=== PATIENT | male | born 1970 | race Caucasian/White ===

== ENCOUNTER 2017-10-06 18:21 | Emergency (ER) | payer MEDICARE, MEDICAID ==
[~2017-10-06] VITALS: Ht 134.6 cm; Wt 81.6 kg
[~2017-10-06 18:21] MED LIST: ALLP100T PO; AMIT25TA9 PO; CARI350T27 PO; CLIN-62 PO; DICY10CA12 PO; ESCT10T PO; ESOM10SU PO; GUAI-583 PO; HYDR1CAP2 PO; LEFL10TA PO; LEVO125T6 PO; LORA10TA7 PO; QTP100T PO; REMICADE; SILO8CAP PO; [UNRECOGNIZED DRUG - CODE] PO
--- OUTSIDE RECORDS SUMMARY | 2017-10-06 18:29 | XMS REPORT | Referral Summary ---
Author Author [facility] Organization [facility] Address Unknown Phone Unavailable Care Team Providers Care Drill Bit Sharpener Name Role Phone Tyrese Ramirez PCP Encounter VC Date(s): 08/09/15 - 08/10/15 [facility] [address] [place] [address]- Discharge Diagnosis: Contact dermatitis Discharge Disposition: 01-Home or Self Care Attending Physician: Chad Clay MD Admitting Physician: Chad Clay MD Vital Signs Most recent to 1 oldest [Reference Range]: Temperature Oral 36.9 degC [35.8-37.3 degC] (08/10/15 12:09 AM) Peripheral Pulse 81 bpm Rate [60-100 bpm] (08/10/15 12:09 AM) Respiratory Rate 18 br/min [14-20 br/min] (08/10/15 12:09 AM) Blood Pressure 122/76 mmHg [90-140/60-90 mmHg] (08/10/15 12:09 AM) SpO2 98 % (08/10/15 12:09 AM) Problem List Condition Effective Dates Status Health Status Informant Acute URI(Confirmed) Active Allergic Active rhinitis(Confirmed) Broken Active patient neck(Confirmed) Dementia(Confirmed) Active patient Esophageal Active patient dysmotility disease(Confirmed) GERD(Confirmed) Active patient Gout(Confirmed) Active patient Hyperlipemia(Confirm Active patient ed) Mental Active patient retardation(Confirme d) Neuropathy (nerve Active patient damage)(Confirmed) Psoriases(Confirmed) Active patient Psoriatic Active patient arthritis(Confirmed) Allergies, Adverse Reactions, Alerts Substance Reaction Severity Status celecoxib ITCHING Active methotrexate Pruritus Active morphine Adverse Reaction Active sulfamethoxazole Adverse Reaction Active Tape Eczema (rash) Active Medications albuterol CFC free 90 mcg/inh inhalation aerosol 1 puffs, Inhalation, q4hr, as needed for wheezing, # 18 g, 0 Refill(s) Start Date: 07/07/14 Status: Ordered clindamycin 150 mg oral capsule 450 mg 3 caps, Oral, q8hr, X 10 days, # 90 caps, 0 Refill(s) Start Date: 08/10/15 Stop Date: 08/20/15 Status: Ordered HYDROcodone Oral, q12hr, 0 Refill(s) Start Date: 07/07/14 Status: Ordered Results No data available for this section Immunizations No data available for this section Procedures Procedure Date Related Diagnosis Body Site Bilateral inguinal hernia repair Cholecystectomy Corneal transplant Neck repair Social History Social History Type Response Smoking Status Never smoker Assessment and Plan No data available for this section
--- OUTSIDE RECORDS SUMMARY | 2017-10-06 18:30 | XMS REPORT | Referral Summary ---
Author Author [facility] Organization [facility] Address Unknown Phone Unavailable Care Team Providers Care Jumpbasting Lining Baster Name Role Phone Tyrese Ramirez PCP Encounter VC Date(s): 10/25/15 - 10/25/15 [facility] [address] [place] [address] Discharge Diagnosis: Rectal bleeding Discharge Disposition: 01-Home or Self Care Attending Physician: Lakeisha Lamb MD Admitting Physician: Lakeisha Lamb MD Vital Signs Most recent to 1 oldest [Reference Range]: Temperature Oral 36.6 degC [35.8-37.3 degC] (10/25/15 12:13 AM) Peripheral Pulse 70 bpm Rate [60-100 bpm] (10/25/15 2:32 AM) Heart Rate Monitored 77 bpm [60-100 bpm] (10/25/15 2:30 AM) Respiratory Rate 18 br/min [14-20 br/min] (10/25/15 2:32 AM) Blood Pressure 103/87 mmHg [90-140/60-90 mmHg] (10/25/15 2:32 AM) Mean Arterial 91 mmHg Pressure, Cuff (10/25/15 2:30 AM) SpO2 97 % (10/25/15 2:32 AM) Problem List Condition Effective Dates Status [...] oral capsule 450 mg 3 caps, Oral, TID, X 10 days, # 90 caps, 0 Refill(s) Start Date: 10/17/15 Stop Date: 10/27/15 Status: Ordered HYDROcodone Oral, q12hr, 0 Refill(s) Start Date: 07/07/14 Status: Ordered Results Hematology Most recent to 1 oldest [Reference Range]: WBC [4.8-10.8 13.1 10*3/uL 10*3/uL] *HI* (10/25/15 12:58 AM) RBC [4.60-6.20] 4.86 (10/25/15 12:58 AM) Hgb [14.0-18.0 15.3 gm/dL gm/dL] (10/25/15 12:58 AM) Hct [42.0-52.0 %] 44.7 % (10/25/15 12:58 AM) MCV [82.0-99.0 fL] 92.0 fL (10/25/15 12:58 AM) MCH [27.0-32.0 pg] 31.5 pg (10/25/15 12:58 AM) MCHC [32.0-36.0 34.2 gm/dL gm/dL] (10/25/15 12:58 AM) RDW [11.5-14.5 %] 15.4 % *HI* (10/25/15 12:58 AM) Platelet [150-400 258 10*3/uL 10*3/uL] (10/25/15 12:58 AM) MPV [9.4-12.3 fL] 10.1 fL (10/25/15 12:58 AM) Neutrophils [51-75 72 % %] (10/25/15 12:58 AM) Band Man [0-8 %] 1 % (10/25/15 12:58 AM) [place] Man [0-1 %] 1 % (10/25/15 12:58 AM) Lymphocytes [20-46 17 % %] *LOW* (10/25/15 12:58 AM) Abn Lymph Man 2 % (10/25/15 12:58 AM) Monocytes [4-11 %] 3 % *LOW* (10/25/15 12:58 AM) Eosinophils [0-4 %] 2 % (10/25/15 12:58 AM) Basophils [0-2 %] 2 % (10/25/15 12:58 AM) Neutro Absolute 9.56 10*3 [1.90-7.00 10*3] *HI* (10/25/15 12:58 AM) Lymph Absolute 2.49 10*3 [0.80-3.30 10*3] (10/25/15 12:58 AM) [place] Absolute 0.39 10*3 [0.30-1.00 10*3] (10/25/15 12:58 AM) Eos Absolute 0.26 10*3 [0.00-0.50 10*3] (10/25/15 12:58 AM) Baso Absolute 0.26 10*3 [0.00-0.20 10*3] *HI* (10/25/15 12:58 AM) Nucleated RBC 0.0 /100 WBC Automated [0 /100 (10/25/15 12:58 AM) WBC] Differential Reviewed (10/25/15 12:58 AM) Chemistry Most recent to 1 oldest [Reference Range]: Sodium Lvl [136-144 140 mEq/L mEq/L] (10/25/15 12:58 AM) Potassium Lvl 3.7 mEq/L [3.6-5.1 mEq/L] (10/25/15 12:58 AM) Chloride [99-109 100 mEq/L mEq/L] (10/25/15 12:58 AM) CO2 [22-32 mEq/L] 33 mEq/L *HI* (10/25/15 12:58 AM) AGAP [3-20] 7 (10/25/15 12:58 AM) BUN [4-20 mg/dL] 9 mg/dL (10/25/15 12:58 AM) Glucose Lvl [70-100 97 mg/dL mg/dL] (10/25/15 12:58 AM) Creatinine Lvl 0.92 mg/dL [0.64-1.27 mg/dL] (10/25/15 12:58 AM) eGFR [>60] >60 1 (10/25/15 12:58 AM) Calcium Lvl 8.9 mg/dL [8.6-10.0 mg/dL] (10/25/15 12:58 AM) Albumin Lvl [3.5-4.8 3.3 gm/dL gm/dL] *LOW* (10/25/15 12:58 AM) Total Protein 6.9 gm/dL [6.1-7.9 gm/dL] (10/25/15 12:58 AM) Globulin [1.9-4.3 3.6 gm/dL gm/dL] (10/25/15 12:58 AM) ALT [17-63 U/L] 37 U/L (10/25/15 12:58 AM) AST [15-41 U/L] 31 U/L (10/25/15 12:58 AM) Alk Phos [26-104 105 U/L U/L] *HI* (10/25/15 12:58 AM) Bili Total [0.2-1.2 0.4 mg/dL 2 mg/dL] (10/25/15 12:58 AM) 1Result Comment: Multiply eGFR results by 1.21 for race. 2Result Comment: Naproxen, specifically the metabolite O-desmethylnaproxen, may cause spurious elevation in Total Bilirubin levels. Immunizations No data available for this section Procedures Procedure Date Related Diagnosis Body Site Bilateral inguinal hernia repair Cholecystectomy Corneal transplant Neck repair Social History Social History Type Response Smoking Status Never smoker Assessment and Plan No data available for this section
--- OUTSIDE RECORDS SUMMARY | 2017-10-06 18:30 | XMS REPORT | Referral Summary ---
Author Author Via [facility] Organization [facility] Address Unknown Phone Unavailable Care Team Providers Care Hatchery Man Name Role Phone Tyrese Ramirez PCP Encounter VC Date(s): 08/13/16 - 08/13/[address] [facility] [address], [place] [address] Discharge Diagnosis: Altered mental status, unspecified Discharge Diagnosis: Altered mental status, unspecified Discharge Disposition: 01-Home or Self Care Attending Physician: Bruno Da Silva MD Admitting Physician: Kenneth Aguilar MD Vital Signs Most recent to 1 oldest [Reference Range]: Temperature Oral 36.6 degC [35.8-37.3 degC] (08/13/16 6:18 PM) Peripheral Pulse 54 bpm Rate [60-100 bpm] *LOW* (08/13/16 9:26 PM) Heart Rate Monitored 45 bpm [60-100 bpm] *LOW* (08/13/16 9:00 PM) Respiratory Rate 16 br/min [14-20 br/min] (08/13/16 9:26 PM) Blood Pressure 105/71 mmHg [90-140/60-90 mmHg] (08/13/16 9:26 PM) Mean Arterial 97 mmHg Pressure, Cuff (08/13/16 9:00 PM) SpO2 95 % (08/13/16 9:26 PM) Problem List Condition Effective Dates Status Health Status Informant Acute URI(Confirmed) Active Allergies(Confirmed) Active Allergic Active rhinitis(Confirmed) Anemia(Confirmed) Active Arthritis(Confirmed) Active Broken Active patient neck(Confirmed) Cortical, lamellar, Active or zonular cataract(Confirmed) Cerebrovascular Active accident(Confirmed) Dementia(Confirmed) Active patient Depression(Confirmed Active ) Thyroid Active disease(Confirmed) Esophageal Active patient dysmotility disease(Confirmed) Fibromyalgia(Confirm Active ed) Fracture of Active ankle(Confirmed) GERD(Confirmed) Active patient Gout(Confirmed) Active patient Hyperlipemia(Confirm Active patient ed) Irritable bowel Active disease(Confirmed) [place], stable Active condition(Confirmed) Mental Active patient retardation(Confirme d) Neuropathy (nerve Active patient damage)(Confirmed) Osteoporosis(Confirm Active ed) Peptic ulcer Active disease(Confirmed) Psoriases(Confirmed) Active patient Psoriatic Active patient arthritis(Confirmed) Allergies, Adverse Reactions, Alerts Substance Reaction Severity Status celecoxib ITCHING Active methotrexate Pruritus Active Methotrexate Sodium Active morphine Adverse Reaction Active Morphine Sulfate Active sulfamethoxazole Adverse Reaction Active sulfonamides Active Tape Eczema (rash) Active Medications albuterol CFC free 90 mcg/inh inhalation aerosol 1 puffs, Inhalation, q4hr, as needed for wheezing, # 18 g, 0 Refill(s) Start Date: 07/07/14 Status: Ordered allopurinol 300 mg oral tablet 300 mg 1 tabs, Oral, Daily Start Date: 11/06/15 Status: Ordered clotrimazole-betamethasone 1%-0.05% topical cream Topical, BID, Apply by topical route Start Date: 11/06/15 Status: Ordered cyclobenzaprine 10 mg oral tablet 10 mg 1 tabs, Oral, TID Start Date: 11/06/15 Status: Ordered diclofenac sodium 75 mg oral delayed release tablet 75 mg 1 tabs, Oral, Daily Start Date: 11/06/15 Status: Ordered dicyclomine 10 mg oral capsule 10 mg 1 caps, Oral, BID Start Date: 11/06/15 Status: Ordered escitalopram 20 mg oral tablet 20 mg 1 tabs, Oral, Daily Start Date: 11/06/15 Status: Ordered HYDROcodone Oral, q12hr, 0 Refill(s) Start Date: 07/07/14 Status: Ordered hyoscyamine 0.125 mg sublingual tablet 0.125 mg 1 tabs, SubLingual, TID, during a meal Start Date: 11/06/15 Status: Ordered levothyroxine 150 mcg (0.15 mg) oral tablet 150 mcg 1 tabs, Oral, Daily Start Date: 11/06/15 Status: Ordered loratadine 10 mg oral tablet 10 mg 1 tabs, Oral, Daily Start Date: 11/06/15 Status: Ordered Lortab 1 tabs, Oral, q6hr, as needed for pain, Lortab 7.5 mg-500 mg, 0 Refill(s) Start Date: 11/06/15 Status: Ordered mupirocin 2% topical ointment Topical, BID, Apply a small amount to the affected area Start Date: 11/06/15 Status: Ordered prednisoLONE acetate mg, Oral, Daily, 0 Refill(s) Start Date: 11/06/15 Status: Ordered prednisoLONE acetate 1% ophthalmic suspension 1 drops, Eye-Left, QID Start Date: 11/06/15 Status: Ordered QUEtiapine 100 mg oral tablet 100 mg 1 tabs, Oral, BID Start Date: 11/06/15 Status: Ordered Remicade 100 mg intravenous injection 5 mg/kg, IV, 0, 2 then every 4 weeks, SoluMedron 125 mg IV prior to Remicade Start Date: 11/06/15 Status: Ordered Remicade 100 mg intravenous injection 5 mg/kg, IV, 0.2 then every 4 weeks Start Date: 11/06/15 Status: Ordered silodosin 8 mg oral capsule 8 mg 1 caps, Oral, Bedtime (once a day) Start Date: 11/06/15 Status: Ordered simvastatin 10 mg oral tablet 10 mg 1 tabs, Oral, take in the evening Start Date: 11/06/15 Status: Ordered triamcinolone 0.1% topical cream imelda, Topical, TID, 0 Refill(s) Start Date: 11/06/15 Status: Ordered Vitamin D3 1000 intl units oral tablet 3, Daily Start Date: 11/06/15 Status: Ordered Results Hematology Most recent to 1 oldest [Reference Range]: WBC [4.8-10.8 10.0 10*3/uL 10*3/uL] (08/13/16 6:47 PM) RBC [4.60-6.20] 4.75 (08/13/16 6:47 PM) Hgb [14.0-18.0 15.1 gm/dL gm/dL] (08/13/16 6:47 PM) Hct [42.0-52.0 %] 44.0 % (08/13/16 6:47 PM) MCV [82.0-99.0 fL] 92.6 fL (08/13/16 6:47 PM) MCH [27.0-32.0 pg] 31.8 pg (08/13/16 6:47 PM) MCHC [32.0-36.0 34.3 gm/dL gm/dL] (08/13/16 6:47 PM) RDW [11.5-14.5 %] 15.6 % *HI* (08/13/16 6:47 PM) Platelet [150-400 215 10*3/uL 10*3/uL] (08/13/16 6:47 PM) MPV [9.4-12.3 fL] 10.1 fL (08/13/16 6:47 PM) Immature 0.6 % Granulocytes (08/13/16 6:47 PM) [0.0-1.0 %] Neutrophils [51-75 63 % %] (08/13/16 6:47 PM) Lymphocytes [20-46 23 % %] (08/13/16 6:47 PM) Monocytes [4-11 %] 12 % *HI* (08/13/16 6:47 PM) Eosinophils [0-4 %] 1 % (08/13/16 6:47 PM) Basophils [0-2 %] 1 % (08/13/16 6:47 PM) Neutro Absolute 6.31 10*3 [1.90-7.00 10*3] (08/13/16 6:47 PM) Lymph Absolute 2.29 10*3 [0.80-3.30 10*3] (08/13/16 6:47 PM) [place] Absolute 1.22 10*3 [0.30-1.00 10*3] *HI* (08/13/16 6:47 PM) Eos Absolute 0.09 10*3 [0.00-0.50 10*3] (08/13/16 6:47 PM) Baso Absolute 0.07 10*3 [0.00-0.20 10*3] (08/13/16 6:47 PM) Chemistry Most recent to 1 oldest [Reference Range]: Sodium Lvl [136-144 139 mEq/L mEq/L] (08/13/16 6:47 PM) Potassium Lvl 3.9 mEq/L [3.6-5.1 mEq/L] (08/13/16 6:47 PM) Chloride [99-109 102 mEq/L mEq/L] (08/13/16 6:47 PM) CO2 [22-32 mEq/L] 28 mEq/L (08/13/16 6:47 PM) AGAP [3-20] 9 (08/13/16 6:47 PM) BUN [4-20 mg/dL] 14 mg/dL (08/13/16 6:47 PM) Glucose Lvl [70-100 172 mg/dL mg/dL] *HI* (08/13/16 6:47 PM) Creatinine Lvl 1.04 mg/dL [0.64-1.27 mg/dL] (08/13/16 6:47 PM) eGFR [>60] >60 1 (08/13/16 6:47 PM) Calcium Lvl 8.5 mg/dL [8.6-10.0 mg/dL] *LOW* (08/13/16 6:47 PM) Albumin Lvl [3.5-4.8 3.3 gm/dL gm/dL] *LOW* (08/13/16 6:47 PM) Total Protein 6.3 gm/dL [6.1-7.9 gm/dL] (08/13/16 6:47 PM) Globulin [1.9-4.3 3.0 gm/dL gm/dL] (08/13/16 6:47 PM) ALT [17-63 U/L] 29 U/L (08/13/16 6:47 PM) AST [15-41 U/L] 31 U/L (08/13/16 6:47 PM) Alk Phos [26-104 76 U/L U/L] (08/13/16 6:47 PM) Bili Total [0.2-1.2 0.6 mg/dL 2 mg/dL] (08/13/16 6:47 PM) 1Result Comment: Multiply eGFR results by 1.21 for race. 2Result Comment: Naproxen, specifically the metabolite O-desmethylnaproxen, may cause spurious elevation in Total Bilirubin levels. Toxicology Most recent to 1 oldest [Reference Range]: Ethanol Lvl Not Detected (08/13/16 6:47 PM) U Amphetamine Scrn Negative (08/13/16 8:40 PM) U Cocaine Scrn Negative (08/13/16 8:40 PM) U Cannab Scrn Negative (08/13/16 8:40 PM) U Opiate Scrn Positive *ABN* (08/13/16 8:40 PM) U PCP Scrn Negative (08/13/16 8:40 PM) U Benzodiazepine Negative Scrn (08/13/16 8:40 PM) U Barbiturate Scrn Negative (08/13/16 8:40 PM) Methadone Lvl Negative (08/13/16 8:40 PM) Tricyclics Negative 1 (08/13/16 8:40 PM) 1Result Comment: Cut-off concentrations: Amphetamines: 1000 ng/mL Cocaine: 300 ng/mL Cannabinoid: 50 ng/mL Opiate: 300 ng/mL Phencyclidine (PCP): 25 ng/mL Benzodiazepine: 200 ng/mL Barbiturate: 200 ng/mL Methadone: 300 ng/mL Tricyclic: 300 ng/mL The urine drug screen assays are qualitative screens. A more specific GC/MS method must be performed to obtain a confirmed analytical result. Unconfirmed screening results must not be used for non-medical purposes(e.g. employment or legal testing) Urinalysis Most recent to 1 oldest [Reference Range]: UA Color Yellow (08/13/16 8:40 PM) UA Appear Clear (08/13/16 8:40 PM) UA pH [5.0-8.0] 5.0 (08/13/16 8:40 PM) UA Leuk Est Negative [Negative] (08/13/16 8:40 PM) UA Nitrite Negative [Negative] (08/13/16 8:40 PM) UA Protein Negative [Negative] (08/13/16 8:40 PM) UA Glucose Negative [Negative] (08/13/16 8:40 PM) UA Ketones Negative [Negative] (08/13/16 8:40 PM) UA Urobilinogen Negative [<1.0] (08/13/16 8:40 PM) UA Bili [Negative] Negative (08/13/16 8:40 PM) UA Blood [Negative] Negative (08/13/16 8:40 PM) UA Spec Grav 1.020 [1.003-1.030] (08/13/16 8:40 PM) Type Clean Catch (08/13/16 8:40 PM) Immunizations No data available for this section Procedures Procedure Date Related Diagnosis Body Site Bilateral inguinal hernia repair Biopsy of prostate Cataract extraction Cholecystectomy Cholecystectomy Corneal transplant Corneal transplant Hernia repair Neck repair Neck surgery for broken neck Vasectomy Social History Social History Type Response Smoking Status Never smoker Assessment and Plan No data available for this section
--- OUTSIDE RECORDS SUMMARY | 2017-10-06 18:30 | XMS REPORT | Referral Summary ---
Author Author [facility] Organization [facility] Address Unknown Phone Unavailable Care Team Providers Care Sheet Metal Shop Supervisor Name Role Phone Tyrese Ramirez PCP Encounter VC Date(s): 08/23/16 - 08/23/16 [facility] [address] [place] [address] [phone] Discharge Disposition: 01-Home or Self Care Attending Physician: Tyrese Ramirez MD Vital Signs No data available for this section Problem List Condition Effective Dates Status Health [...] Daily Start Date: 11/06/15 Status: Ordered Results No data available for [...]
--- OUTSIDE RECORDS SUMMARY | 2017-10-06 18:31 | XMS REPORT | Referral Summary ---
Author Author [facility] Organization [facility] Address Unknown Phone Unavailable Care Team Providers Care Internal Review And Audit Compliance Name Role Phone Tyrese Ramirez PCP Encounter VC Date(s): 11/11/16 - 11/11/16 [facility] [address] [place], [place] [address] Discharge Disposition: 01-Home or Self Care Attending Physician: Tyrese Ramirez MD Admitting Physician: Tyrese Ramirez MD Vital Signs No [...]
--- OUTSIDE RECORDS SUMMARY | 2017-10-06 18:31 | XMS REPORT | Referral Summary ---
Author Author [facility] Organization [facility] Address Unknown Phone Unavailable Care Team Providers Care Accounts Payable Administrator Name Role Phone Tyrese Ramirez PCP Encounter VC Date(s): 05/15/16 - 05/15/16 [facility] [address] [place], [place] [address] Discharge Diagnosis: Esophageal foreign body Discharge Disposition: 01-Home or Self Care Attending Physician: Dakotah Robles MD Admitting Physician: Dakotah Robles MD Vital Signs Most recent to 1 oldest [Reference Range]: Temperature Oral 36.6 degC [35.8-37.3 degC] (05/15/16 4:55 PM) Peripheral Pulse 54 bpm Rate [60-100 bpm] *LOW* (05/15/16 6:08 PM) Respiratory Rate 16 br/min [14-20 br/min] (05/15/16 6:08 PM) Blood Pressure 96/52 mmHg [90-140/60-90 mmHg] (05/15/16 6:08 PM) SpO2 94 % (05/15/16 4:55 PM) Problem List Condition Effective Dates Status [...]
--- OUTSIDE RECORDS SUMMARY | 2017-10-06 18:31 | XMS REPORT | Referral Summary ---
Author Author [facility] Organization [facility] Address Unknown Phone Unavailable Care Team Providers Care Physician Executive Name Role Phone Tyrese Ramirez PCP Encounter VC Date(s): 07/01/16 - 07/02/16 [facility] [address] [place], [place] [address] Discharge Diagnosis: Back pain Discharge Diagnosis: Minor head injury Discharge Diagnosis: Accidental fall Discharge Disposition: 01-Home or Self Care Attending Physician: Kenneth Aguilar MD Admitting Physician: Kenneth Aguilar MD Vital Signs Most recent to 1 oldest [Reference Range]: Temperature Oral 36.8 degC [35.8-37.3 degC] (07/01/16 11:14 PM) Peripheral Pulse 71 bpm Rate [60-100 bpm] (07/01/16 11:14 PM) Heart Rate Monitored 78 bpm [60-100 bpm] (07/02/16 1:49 AM) Respiratory Rate 18 br/min [14-20 br/min] (07/01/16 11:14 PM) Blood Pressure 133/90 mmHg [90-140/60-90 mmHg] (07/02/16 1:49 AM) Mean Arterial 100 mmHg Pressure, Cuff (07/02/16 1:49 AM) SpO2 99 % (07/02/16 1:49 AM) Problem List Condition Effective Dates Status [...]
--- OUTSIDE RECORDS SUMMARY | 2017-10-06 18:31 | XMS REPORT | Referral Summary ---
Author Author [facility] Organization [facility] Address Unknown Phone Unavailable Care Team Providers Care Boiler Out Name Role Phone Tyrese Ramirez PCP Encounter VC Date(s): 10/17/15 - 10/17/15 [facility] [address] [place] [address] [phone] Discharge Diagnosis: Cellulitis of buttock Discharge Disposition: -Home or Self Care Attending Physician: Miguel Ángel Navarrete MD Admitting Physician: Miguel Ángel Navarrete MD Vital Signs Most recent to 1 oldest [Reference Range]: Temperature Oral 36.3 degC [35.8-37.3 degC] (10/17/15 12:03 PM) Peripheral Pulse 90 bpm Rate [60-100 bpm] (10/17/15 2:00 PM) Respiratory Rate 20 br/min [14-20 br/min] (10/17/15 2:00 PM) Blood Pressure 102/58 mmHg [90-140/60-90 mmHg] (10/17/15 2:00 PM) SpO2 99 % (10/17/15 2:00 PM) Problem List Condition Effective Dates Status [...] 0 Refill(s) Start Date: 07/07/14 Status: Ordered hydrOXYzine pamoate 25 mg oral capsule 25 mg 1 caps, Oral, QID, as needed for itching, # 12 caps, 0 Refill(s) Start Date: 10/17/15 Stop Date: 10/18/15 Status: Ordered Results No data available for this section Immunizations No data available for this section Procedures Procedure Date Related Diagnosis Body Site Bilateral inguinal hernia repair Cholecystectomy Corneal transplant Neck repair Social History Social History Type Response Smoking Status Never smoker Assessment and Plan No data available for this section
--- OUTSIDE RECORDS SUMMARY | 2017-10-06 18:31 | XMS REPORT | Referral Summary ---
Author Author [facility] Organization [facility] Address Unknown Phone Unavailable Care Team Providers Care Siebel Developer Name Role Phone Tyrese Ramirez PCP Encounter VC Date(s): 08/09/15 - 08/10/15 [facility] [address] [place] [address]- Discharge Diagnosis: Contact dermatitis Final: Unspecified contact dermatitis, unspecified cause Discharge Disposition: 01-Home or Self Care Attending [...]
[2017-10-06] MEDS ORDERED: oxyCODONE/APAP 5/325MG (PERCOCET 5) TABLET PO STA ×2 (19:16→20:25)
--- NOTE | 2017-10-06 19:19 | ED Lower Extremity ---
General Chief Complaint: Hip/Pelvic Problems Stated Complaint: FALL Nursing Triage Note: left hip pain. Nursing Sepsis Screen: No Definite Risk Source: patient, family Exam Limitations: physical impairment (down's syndrome. patient is able to answer simple questions. Mother gives the majority of the patient's history and symptoms. ) History of Present Illness Time seen by provider: 19:07 Initial Comments 46-year-old male patient with Down syndrome presents to the emergency department with complaints of progressively worsening left hip pain and right lower extremity pain. Mother states he was getting out of bed earlier today and started to fall. States he did not fall completely to the ground. Denies hitting his head or loss of consciousness. Patient now complaining of right leg pain. Patient sees a specialist in [place], [place] for the left hip pain and was previously told he needed surgery,but was not a candidate for it. Onset: this morning Method of Injury: other (started to fall while getting out of bed.) Modifying Factors: Improves With Immobilization, Worse With Movement, Worse With Other (unable to bear weight on the RLE) Allergies and Home Medications Allergies Coded Allergies: Sulfa (Sulfonamide Antibiotics) (Unverified Allergy, RASH, 07/15/10) morphine (Unverified Allergy, HALLUCINATIONS, 07/15/10) Home Medications Allopurinol 100 Mg Tablet, 1 TAB PO DAILY, (Reported) Dicyclomine Hcl 10 Mg Capsule, 10 MG PO Q6H, (Reported) Escitalopram Oxalate 10 Mg Tablet, 1 EACH PO HS, (Reported) Esomeprazole Mag Trihydrate 10 Mg Suspdr.pkt, 10 MG PO DAILY, (Reported) Guaifenesin/Codeine Phos 473 Ml Liquid, 1-2 TSP PO Q6H PRN, #120 Ref 0 Prescribed by: THAO CLARK on 04/22/11 0928 Hydrocodone Bit/Acetaminophen 1 Each Capsule, 1 EACH PO Q6HR PRN, (Reported) Leflunomide 10 Mg Tablet, 10 MG PO DAILY, (Reported) Levothyroxine Sodium 125 Mcg Tablet, 1 EACH PO DAILY, (Reported) Loratadine 10 Mg Tablet, 10 MG PO DAILY, (Reported) Naproxen Sodium 375 Mg Tablet.sa, 2 EACH PO DAILY - BID PRN, (Reported) Quetiapine Fumarate 100 Mg Tablet, 1 TAB PO NEEDED, (Reported) Silodosin 8 Mg Capsule, 8 MG PO HS, (Reported) [Remicade] , Q 6 WEEKS, (Reported) Constitutional: No chills, No dizziness, No fever, No malaise Respiratory: no symptoms reported Cardiovascular: no symptoms reported Gastrointestinal: no symptoms reported Genitourinary: no symptoms reported Musculoskeletal: No back pain, joint pain, No joint swelling, No neck pain Skin: No change in color, No lumps Psychiatric/Neurological: No Symptoms Reported Other ROS per mother and patient. All Other Systems Reviewed Negative Unless Noted: Yes (Negative excepted noted.) Past Vzvnlat-Hcqcwq-Pmqhyn Hx Patient Social History Alcohol Use: Denies Use Recreational Drug Use: No Smoking Status: Never a Smoker 2nd Hand Smoke Exposure: No Recent Foreign Travel: No Contact w/Someone Who Travel: No Recent Infectious Disease Expo: No Recent Hopitalizations: No Immunizations Up To Date Tetanus Booster (TDap): Unknown PED Vaccines UTD: Yes Seasonal Allergies Seasonal Allergies: No Surgeries History of Surgeries: Yes (hernia, neck, back) Surgeries: Gallbladder, Orthopedic, Testicular Respiratory History of Respiratory Disorde: No Cardiovascular History of Cardiac Disorders: No Neurological History of Neurological Disord: Yes (DOWNS SYNDROME/CLOT RIGHT SIDE OF BRAIN 20 YRS AGO) Neurological Disorders: Dementia, Neuropathy Reproductive System Sexually Transmitted Disease: No Genitourinary History of Genitourinary Disor: No Gastrointestinal History of Gastrointestinal Di: Yes Gastrointestinal Disorders: Gastroesophageal Reflux Musculoskeletal History of Musculoskeletal Dis: Yes (Chronic left hip pain) Musculoskeletal Disorders: Arthritis, Chronic Back Pain Endocrine History of Endocrine Disorders: Yes Endocrine Disorders: Hypothyroidsim HEENT History of HEENT Disorders: No Cancer History of Cancer: No Psychosocial History of Psychiatric Problem: No Integumentary History of Skin or Integumenta: Yes Skin/Integumentary Disorders: Eczema, Psoriasis Blood Transfusions History of Blood Disorders: No Reviewed Nursing Assessment Reviewed/Agree w Nursing PMH: Yes Family Medical History Significant Family History: No Pertinent Family Hx Physical Exam Vital Signs Vital Sign - Last 12Hours 10/06/17 19:06 Temp 97.7 Pulse 71 Resp 18 B/P (MAP) 91/76 (81) Pulse Ox 97 O2 Delivery Room Air Capillary Refill : Less Than 3 Seconds General Appearance: WD/WN, no apparent distress Neck: non-tender, full range of motion, supple, normal inspection Cardiovascular: normal peripheral pulses, regular rate, rhythm, no edema, no murmur Respiratory: lungs clear, normal breath sounds, no respiratory distress, no accessory muscle use Gastrointestinal: normal bowel sounds, non tender, soft, no organomegaly Back: normal inspection, no vertebral tenderness Hips: bilateral hip normal inspection, bilateral hip no evidence of injury, bilateral hip bone tenderness (lateral right hip and anterior left hip TTP), bilateral hip limited range of motion, bilateral hip pain, bilateral hip soft tissue tenderness Legs: bilateral leg normal inspection, left leg normal range of motion, bilateral leg no evidence of injury, bilateral leg bone tenderness, right leg limited range of motion, bilateral leg soft tissue tenderness (R>L) Knees: bilateral knee normal inspection, left knee normal range of motion, left knee no evidence of injury, bilateral knee bone tenderness, bilateral knee soft tissue tenderness Ankles: left ankle non-tender, bilateral ankle normal inspection, bilateral ankle normal range of motion, bilateral ankle no evidence of injury, right ankle bone tenderness, right ankle soft tissue tenderness Feet: bilateral foot normal inspection, bilateral foot normal range of motion, bilateral foot no evidence of injury, bilateral foot bone tenderness, bilateral foot soft tissue tenderness Neurologic/Tendon: normal sensation, normal motor functions, normal tendon functions, responds to pain, no evidence tendon injury Neurologic/Psychiatric: no motor/sensory deficits, alert, normal mood/affect, oriented x 3 Skin: normal color, warm/dry Progress/Results/Core Measures Results/Orders Lab Results Laboratory Tests Test 10/06/17 22:00 Range/Units Urine Color YELLOW Urine Clarity CLEAR Urine pH 6 5-9 Urine Specific [place] 1.010 L 1.016-1.022 Urine Protein NEGATIVE NEGATIVE Urine Glucose (UA) NEGATIVE NEGATIVE Urine Ketones NEGATIVE NEGATIVE Urine Nitrite NEGATIVE NEGATIVE Urine Bilirubin NEGATIVE NEGATIVE Urine Urobilinogen NORMAL NORMAL MG/DL Urine Leukocyte Esterase NEGATIVE NEGATIVE Urine RBC (Auto) NEGATIVE NEGATIVE Urine RBC NONE /HPF Urine WBC NONE /HPF Urine Squamous Epithelial Cells RARE /HPF Urine Crystals NONE /LPF Urine Bacteria NONE /HPF Urine Casts NONE /LPF Urine Mucus NEGATIVE /LPF Urine Culture Indicated NO My Orders Orders - TEJAS BYNUM Oxycodone/Apap 5/325mg Tablet (Percocet (10/06/17 19:16) Pelvis (10/06/17 19:16) Femur, Bilateral, 2 Views (10/06/17 19:16) Foot, Bilateral, 2 Views (10/06/17 19:16) Tibia/Fibula, Bilateral, 2view (10/06/17 19:16) Oxycodone/Apap 5/325mg Tablet (Percocet (10/06/17 20:25) Bladder Scan (10/06/17 21:33) Catheter(Urinary) Insert & Ass 03,15 (10/06/17 21:46) Ua Culture If Indicated (10/06/17 22:09) Vital Signs/I&O Vital Sign - Last 12Hours 10/06/17 10/06/17 19:06 19:24 Temp 97.7 97.7 Pulse 71 Resp 18 B/P (MAP) 91/76 (81) Pulse Ox 97 O2 Delivery Room Air Blood Pressure Mean: 81 Diagnostic Imaging Diagonstic Imaging: Xray Plain Films/CT/US/NM/MRI: pelvis Reviewed: Reviewed by Me (radiology report reviewed by me) Diagonstic Imaging: Xray Plain Films/CT/US/NM/MRI: femur (bilateral femur) Reviewed: Reviewed by Me (radiology report reviewed by me) Diagonstic Imaging: Xray Plain Films/CT/US/NM/MRI: leg (bilateral tib-fib) Reviewed: Reviewed by Me (radiology report reviewed by me) Diagonstic Imaging: Xray Plain Films/CT/US/NM/MRI: other (bilateral feet) Reviewed: Reviewed by Me (radiology report reviewed by me) Departure Communication (Admissions) Progress Notes 1914 Diagnostic study results pending. Dr. Bonilla calling [facility] for study reports. Impression Impression: Primary Impression: Acute pain of right lower extremity Additional Impressions: Urinary retention Chronic left hip pain Disposition: 01 HOME, SELF-CARE Condition: Improved Departure-Patient Inst. Decision time for Depature: 22:38 Referrals: MYRNA NÚÑEZ MD (PCP/Family) Primary Care Physician Patient Instructions: Chronic Pain (DC), Urinary Retention (DC) Add. Discharge Instructions: All discharge instructions reviewed with patient and/or family. Voiced understanding. Continue usual home medications. Activity as tolerated. Ice pack for 20 minute intervals as needed for pain. Follow-up with Dr. Núñez as an outpatient for recheck. Return to the emergency department for worsened pain , weakness, fever, inability to urinate, blood in the urine, abdominal pain, diarrhea, vomiting, or any other concerns. Scripts Prednisone (Prednisone) 20 Mg Tab 20 MG PO BID, #6 TAB 0 Refills Prov: TEJAS BYNUM 10/06/17 TEJAS BYNUM Oct 06, 2017 19:19
[2017-10-06 22:16] LABS: BILIRUBIN,URINE NEGATIVE (NEGATIVE); KETONES,URINE NEGATIVE (NEGATIVE); LEUKOCYTE ESTERASE ,URINE NEGATIVE (NEGATIVE); NITRITE,URINE NEGATIVE (NEGATIVE); PH,URINE 6 (5-9); PROTEIN,URINE NEGATIVE (NEGATIVE); UROBILINOGEN,URINE NORMAL (NORMAL)
[2017-10-06 22:28] LABS: SQUAMOUS EPITHELIAL CELL,UR RARE /HPF
[2017-10-06] MEDS ORDERED: PRD20T PO (22:43)
[2017-10-06 23:19] VITALS: BP 100/67
--- NOTE | 2017-10-07 23:14 | Diagnostic Imaging Report ---
Patient History: Fall. Technique: Frontal and lateral views of the bilateral femurs Comparison: None FINDINGS: No acute fracture or dislocation is seen in the bilateral femurs. Alignment appears normal. 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 IMPRESSION: No acute osseous abnormality seen in the bilateral femurs. Dictated by: Dictated on workstation # [id number]
--- NOTE | 2017-10-07 23:14 | Diagnostic Imaging Report ---
Patient History: Fall Technique: Frontal and lateral views of the bilateral tibia/fibula Comparison: None FINDINGS: No acute fracture or dislocation is seen in the right or left tibia/fibula. Alignment of the bony structures appears normal. There is fixation hardware in the distal left tibia and fibula. There is deformity of the proximal left fibula, likely from remote injury. Minimal degenerative changes are seen in the knees bilaterally. IMPRESSION: No acute osseous abnormality seen in the tibia and fibula bilaterally. Dictated by: Dictated on workstation # [id number]
--- NOTE | 2017-10-07 23:14 | Diagnostic Imaging Report ---
Patient History: Fall Technique: 2 views of the right and left feet Comparison: None FINDINGS: No acute fracture is seen in the right and left feet. There is marked hallux valgus of the left great toe, with mild lateral subluxation and rotation of the left great toe. Postsurgical changes are seen at the distal fibula and tibia. There is mild soft tissue edema about the left and right foot. Well-corticated ossification seen at the distal right fibula, likely from remote trauma. There is also marked hallux valgus and subluxation of the right great toe metatarsophalangeal joint. IMPRESSION: 1. Marked bilateral hallux valgus and great toe subluxation, with rotation of the left great toe. These appear to be chronic. Sequela from remote traumatic injuries of the bilateral ankles with no acute osseous abnormality seen in the right and left feet. Dictated by: Dictated on workstation # [id number]
--- NOTE | 2017-10-07 23:14 | Diagnostic Imaging Report ---
Patient History: Fall Technique: AP view of the pelvis. Comparison: CT from 12/29/2012. FINDINGS: No acute fracture or dislocation is seen in the pelvis. 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 The femoral heads are seated in the acetabula bilaterally. IMPRESSION: 1. No acute osseous abnormality seen in the pelvis. Stable deformity of the left proximal femur. Dictated by: Dictated on workstation # [id number]
== END 2017-10-06 23:19 | disposition home or self-care (01) ==
LOC: EDUNIT# 18:21 → ER 18:22
DX: M79.604 Pain in right leg (principal); M25.552 Pain in left hip; G89.29 Other chronic pain; R33.9 Retention of urine, unspecified; Q90.9 Down syndrome, unspecified; F03.90 Unspecified dementia, unspecified severity, without behavioral disturbance, psychotic disturbance, mood disturbance, and anxiety; K21.9 Gastro-esophageal reflux disease without esophagitis; E03.9 Hypothyroidism, unspecified; M16.12 Unilateral primary osteoarthritis, left hip; Z87.19 Personal history of other diseases of the digestive system; W06.XXXA Fall from bed, initial encounter
CPT/HCPCS: 51702; 72170; 81000